=== PATIENT | female | born 1975 | race Asian ===

== ENCOUNTER 2019-12-16 23:08 | Emergency (ER) | payer SELFPAY ==
[~2019-12-16] VITALS: Ht 152.4 cm; Wt 92.5 kg
--- NOTE | 2019-12-16 23:08 | NUR ---
Patient to ER bed H1 for evaluation. Side rails up.
--- NOTE | 2019-12-16 23:09 | NUR ---
Pt AAOx4 ambulated into ED in handcuffs escorted by law enforcement for medical clearance prior to booking. Pt reports she has diabetes and has not taken her medication today. Accucheck 174 upon traige. No other injuries/complaints per pt/noted. Will continue to monitor.
[2019-12-16 23:13] VITALS: BP_SYST 143
--- NOTE | 2019-12-16 23:19 | NUR ---
ER Dr. Barnhart at bedside examining patient.
[2019-12-17 00:09] VITALS: BP_SYST 138
--- NOTE | 2019-12-17 00:09 | NUR ---
Patient given written and verbal discharge instructions and verbalizes understanding. ER MD discussed with patient the results and treatment provided. Patient in stable condition. ID arm band removed. No IV No RX given. Patient educated on pain management and to follow up with PMD. Pain Scale 0/10. Pt discharged in custody of [facility] for questions provided and answered.
== END 2019-12-17 00:09 ==
LOC: SED 23:08
DX: E11.9 Type 2 diabetes mellitus without complications (principal); I10 Essential (primary) hypertension; Z13.89 Encounter for screening for other disorder
CPT/HCPCS: 99283